=== PATIENT | male | born 2000 | race Caucasian/White ===

== ENCOUNTER 2024-09-11 17:17 | Inpatient (IN) | payer OTHER, SELFPAY ==
[2024-09-11 17:25] VITALS: BP 136/84; BP 143/75; PULSE 70; PULSE 73; RESP 16; TEMP 36.1; O2SAT 97; BMI 34.9
--- NOTE | 2024-09-11 17:35 | MHC.CARE ---
Addendum entered by Mari Carter LCSW 09/11/24 21:37: Lauren was updated on Pt's dispo: adult IPLOC. Original Note: [facility] counseling center clinican called CARE Team earlier reporting to expect Pt to come to [facility] ED. Spoke with Gregg ([phone]) who is the director of the counseling center who reports that Pt was walked over by two faculty members due to Pt expressing he was struggling with SI and not feeling in control of it. Pt reported recently searching on the internet how to overdose and has been considering jumping off of something that is tall. Recent SIB via cutting. SI attempt hx is not known. Pt reported that his brother a few months ago and it is suspected to be by completed suicide. 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 Pt is part of [employer] which is a group for those who were in the foster care system-- thus no contact information for family was able to be provided. Pt is prescribed medication, however is not refilled or administered by a provider located at [facility] (known: Celexa, Adderall). Dispo is to be reported to after-hours number to Lauren: [phone]
[2024-09-11 17:37] VITALS: RESP 16
--- NOTE | 2024-09-11 17:40 | PC.NURSE ---
Kristopher comes in today from [facility] on a section 12 after having some thoughts of suicide and increasing depression. he reports that he presented to his counselors office where he disclosed that he has been having increased thoughts of harming himself. He also admits to cutting his thighs recently. Pt is calm and cooperative, offering no complaints to this RN. Aware of plan of care for supervisor policy change clerks, medical clearance and then CARE team dagoberto
[2024-09-11 18:37] LABS: MANUAL DIFF FLAG NO
[2024-09-11 18:39] LABS: Appearance Urine Cloudy; Color Urine Yellow; Glucose Urine UA Negative (Negative); Leukocyte Esterase Urine Negative (Negative); Nitrite Urine Negative (Negative); PH 6.5 (5.0-9.0); Specific Gravity - Urine 1.025 (1.005-1.025); Urine Blood Negative (Negative); Urine Ketones Trace mg/dL (Negative); Urine Protein Negative (Neg-Trace)
[2024-09-11 18:48] LABS: Amphetamine Screen Urine POSITIVE (Not Detect); Barbiturates, Urine Not Detected (Not Detect); Benzodiazepines Screen Urine Not Detected (Not Detect); Buprenorphine Scr Not Detected (Not Detect); Cannabinoid Screen Urine POSITIVE (Not Detect); Cocaine Screen Urine Not Detected (Not Detect); Fentanyl, urine Not Detected (Not Detect); Methadone Screen, Urine Not Detected (Not Detect); Opiate Screen Urine Not Detected (Not Detect); Oxycodone Screen Urine Not Detected (Not Detect); Phencyclidine Screen Urine Not Detected (Not Detect)
[2024-09-11 18:51] LABS: Basophils Percent Auto 0.5 % (0-2); Eosinophils Absolute Auto 0.2 X10*3/uL (0.0-0.4); Eosinophils Percent Auto 3.1 % (0-4); Hematocrit 45.9 % (42.0-52.0); Hemoglobin 15.4 g/dl (14.0-18.0); Imm Gran Abs Auto 0.06 X10*3/uL (0.00-0.03); Imm Gran Pct Auto 0.8 % (0.0-0.4); Lymphocytes Absolute Auto 2.9 X10*3/uL (1.2-4.9); Lymphocytes Percent Auto 38.5 % (20-40); Mean Corpuscular HGB Conc 33.6 g/dl (31.0-36.0); Mean Corpuscular Hemoglobin 27.1 pg (27.0-33.0); Mean Corpuscular Volume 80.8 fL (80.0-98.0); Mean Platelet Volume 9.7 fL (9.4-12.4); Monocytes Absolute Auto 0.5 X10*3/uL (0.1-1.2); Neutrophils Absolute Auto 3.7 x10*3/uL (2.0-8.3); Neutrophils Percent Auto 50.1 % (45-73); Platelet Count 254 X10*3/uL (160-400); Red Blood Count 5.68 X10*6/uL (4.60-5.80); White Blood Count 7.5 X10*3/uL (4.8-10.8)
[2024-09-11 19:06] LABS: Alanine Aminotransferase 34 U/L (0-40); Albumin Level 4.2 g/dL (3.5-5.0); Anion Gap 13 (12-20); Aspartate Amino Transferase 26 U/L (5-37); Bilirubin Total 0.5 mg/dL (0.0-1.0); Blood Urea Nitrogen 12 mg/dL (9-16); Calcium 9.6 mg/dL (8.4-10.2); Carbon Dioxide 27 mmol/L (22-29); Chloride 107 mmol/L (96-108); Estimated Glomerular Filt Rate > 60; Ethanol < 10 mg/dL; Glucose Random 89 mg/dL (60-115); Potassium 3.6 mmol/L (3.3-5.1); Sodium 143 mmol/L (135-145); Total Protein 7.3 g/dL (6.5-8.0)
--- NOTE | 2024-09-11 19:10 | PC.NURSE ---
patient appears to remain at rest presently respirations are even and unlabored patient appears in no distress
[2024-09-11 19:15] LABS: Alkaline Phosphatase 103 U/L (39-117)
--- NOTE | 2024-09-11 20:44 | ED.PSYCH ---
HPI - Psych General Chief Complaint: Psychiatric Symptoms Stated Complaint: sect 12, si Time Seen by Provider: 09/11/24 19:42 Source: patient Mode of arrival: ambulatory History of Present Illness ED Provider: Mary Kemp PA-C HPI Narrative: 24-year-old male with a history of autism, bipolar, OCD, ADHD, anxiety and depression, presents from [facility], via a section 12, with SI. Patient does not have a specific plan for self-harm at this time. Patient states he has had increasing psychosocial stressors. Patient has prior suicide attempts including an attempt to hang himself. Denies use of illicit substances or alcohol. Related Data Allergies Allergy/AdvReac Type Severity Reaction Status Date / Time No Known Allergies Allergy Verified 09/11/24 17:28 Review of Systems Review of Systems: Yes all other systems are reviewed and are negative Constitutional: Constitutional: Denies fatigue and Denies fever(s) Cardiovascular: Cardiovascular: Denies chest pain and Denies dyspnea Respiratory: Respiratory: Denies cough and Denies dyspnea Gastrointestinal: Gastrointestinal: Denies abdominal pain, Denies nausea and Denies vomiting Endocrine: Endocrine: Denies fatigue [facility] Past Medical History Attestation statement: The following information was validated with the patient. Social History Social History Alcohol intake: current Alcohol intake frequency: holidays/special occasions only Smoked in Last 30 Days: No Use of substances other than those prescribed or required for medical reasons: Yes Substance Use Type: Marijuana Substance Use Frequency: Occasionally Advance Directives: No Advance Directives Information Provided: No Physical Exam Vital Signs: Vital Signs: Last Vital Signs Temp 97.0 F 09/11/24 17:25 Pulse 70 09/11/24 17:25 Resp 16 09/11/24 17:37 BP 143/75 H 09/11/24 23:01 Pulse Ox 97 09/11/24 17:25 O2 Del Method Room Air 09/11/24 17:25 BMI result Body Mass Index 34.9 Const: Other: Alert well-appearing Orientation/consciousness: patient oriented x3 Resp: Effort & Inspection: normal respiratory effort Cardio: Other: Normal peripheral perfusion Skin: Other: Warm dry no rash Neuro: General: patient oriented x3, gait normal, no focal motor deficits and CN's II-XI intact bilaterally Psych: Other: Cooperative Course Reevaluation(s) Reevaluation #1: I spoke with the care team, the patient has been researching ways to overdose. He is high risk, he has had prior attempts, he we will be a bed search. Medications Administered Discontinued Medications Generic Name Dose Route Start Last Admin Trade Name Wilbert PRN Reason Stop Dose Admin Clonidine HCl 0.2 mg 09/11/24 22:56 09/11/24 23:01 Clonidine Hcl 0.2 Mg Tablet PO 09/11/24 22:57 0.2 mg ONCE ONE Administration Protocol Hydroxyzine HCl 50 mg 09/11/24 22:56 09/11/24 23:00 Hydroxyzine Hcl 50 Mg Tablet PO 09/11/24 22:57 50 mg ONCE ONE Administration Medical Decision Making Medical Decision Making MDM Narrative: 24-year-old male with a history of autism, bipolar, OCD, ADHD, anxiety and depression, presents from [facility] student counseling center, via a section 12, with SI. Patient does not have a specific plan for self-harm at this time. Patient states he has had increasing psychosocial stressors. Patient has prior suicide attempts including an attempt to hang himself. Denies use of illicit substances or alcohol. Problem: Psychiatric illness History: Per patient I have considered the following differential diagnoses: SI, HI, decompensated psychiatric illness, drug/alcohol intoxication Plan: We will be screening basic labs, serum ethanol and drug screen. The patient will be referred to the care team. I have independently reviewed the following tests: Labs: No leukocytosis, not anemic, no electrolyte abnormalities noted, drug screen positive for cannabinoids and amphetamine, ethanol negative Lab Data 09/11/24 18:27 09/11/24 18:27 Labs: Lab Results 09/11/24 Range/Units 18:27 WBC 7.5 (4.8-10.8) X10*3/uL RBC 5.68 (4.60-5.80) X10*6/uL Hgb 15.4 (14.0-18.0) g/dl Hct 45.9 (42.0-52.0) % MCV 80.8 (80.0-98.0) fL MCH 27.1 (27.0-33.0) pg MCHC 33.6 (31.0-36.0) g/dl RDW 13.0 (11.0-16.0) % Plt Count 254 (160-400) X10*3/uL MPV 9.7 (9.4-12.4) fL Immature Gran % (Auto) 0.8 H (0.0-0.4) % Neut % (Auto) 50.1 (45-73) % Lymph % (Auto) 38.5 (20-40) % [place] % (Auto) 7.0 (2-11) % Eos % (Auto) 3.1 (0-4) % Baso % (Auto) 0.5 (0-2) % Lymph # (Auto) 2.9 (1.2-4.9) X10*3/uL [place] # (Auto) 0.5 (0.1-1.2) X10*3/uL Eos # (Auto) 0.2 (0.0-0.4) X10*3/uL Baso # (Auto) 0.0 (0.0-0.2) X10*3/uL Abs Immat Gran (auto) 0.06 H (0.00-0.03) X10*3/uL Absolute Neuts (auto) 3.7 (2.0-8.3) x10*3/uL Absolute Nucleated RBC 0.000 (0.0-0.012) X10*3/uL Nucleated RBC % (auto) 0.0 (0.0-0.2) /100WBC Sodium 143 (135-145) mmol/L Potassium 3.6 (3.3-5.1) mmol/L Chloride 107 (96-108) mmol/L Carbon Dioxide 27 (22-29) mmol/L Anion Gap 13 (12-20) BUN 12 (9-16) mg/dL Creatinine 1.03 (0.5-1.4) mg/dL Estim Creat Clear Calc 144.0 Estimated GFR > 60 Random Glucose 89 (60-115) mg/dL Calcium 9.6 (8.4-10.2) mg/dL Total Bilirubin 0.5 (0.0-1.0) mg/dL AST 26 (5-37) U/L ALT 34 (0-40) U/L Alkaline Phosphatase 103 (39-117) U/L Total Protein 7.3 (6.5-8.0) g/dL Albumin 4.2 (3.5-5.0) g/dL Urine Color Yellow Urine Appearance Cloudy Urine pH 6.5 (5.0-9.0) Ur Specific [place] 1.025 (1.005-1.025) Urine Protein Negative (Neg-Trace) mg/dL Urine Glucose (UA) Negative (Negative) mg/dL Urine Ketones Trace (Negative) mg/dL Urine Blood Negative (Negative) Urine Nitrite Negative (Negative) Ur Leukocyte Esterase Negative (Negative) Urine Opiates Screen Not Detected (Not Detect) Ur Buprenorphine Scrn Not Detected (Not Detect) ng/mL Ur Oxycodone Screen Not Detected (Not Detect) ng/mL Urine Methadone Screen Not Detected (Not Detect) ng/mL Urine Fentanyl Screen Not Detected (Not Detect) Ur Barbiturates Screen Not Detected (Not Detect) Ur Phencyclidine Scrn Not Detected (Not Detect) Ur Amphetamines Screen POSITIVE H (Not Detect) U Benzodiazepines Scrn Not Detected (Not Detect) Urine Cocaine Screen Not Detected (Not Detect) U Marijuana (THC) Screen POSITIVE H (Not Detect) Ethyl Alcohol < 10 mg/dL Discharge Plan Discharge Clinical Impression: Suicidal ideation Patient Disposition: Still a Patient Interventions: [place]-Suicide Risk Severity Scale Last Done: 09/11/24 17:37 Print Language: Mozambican
[2024-09-11] MEDS: hydrOXYzine HCL 50 MG TABLET PO (23:00)
[2024-09-11 23:01] VITALS: BP 143/75
[2024-09-11] MEDS: cloNIDine HCL 0.2 MG TABLET PO (23:01)
[2024-09-12 11:02] VITALS: BP 112/54; PULSE 60; RESP 14; TEMP 36.8; O2SAT 98
--- NOTE | 2024-09-12 12:52 | PHA.MEDREC ---
Pharmacy Consult ? Medication Reconciliation RN has completed the medication reconciliation. Contacted [facility] pharmacy and patient has been filling Citalopram and vyvanse consistently over the past year. Last fill for vyvanse 07/20/24 x 30 days and last fill of citalopram 20 mg was on 07/20 for a 30 day supply.
--- NOTE | 2024-09-12 12:59 | P.HPPS_ITS ---
HPI Date of Service: 09/12/24 Chief Complaint: SI Sources of Information: patient interviewed, chart reviewed and crisis/core team assessment reviewed HPI Subjective Notes: Conditional Voluntary Medical Problems Affecting Mental Status: No Narrative: As per CARES documentation 09/11/24: [facility] counseling center clinican called CARE Team earlier reporting to expect Pt to come to [facility] ED. Spoke with Gregg ([phone]) who is the director of the counseling center who reports that Pt was walked over by two faculty members due to Pt expressing he was struggling with SI and not feeling in control of it. Pt reported recently searching on the internet how to overdose and has been considering jumping off of something that is tall. Recent SIB via cutting. SI attempt hx is not known. Pt reported that his brother a few months ago and it is suspected to be by completed suicide. 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 Pt is part of [employer] which is a group for those who were in the foster care system-- thus no contact information for family was able to be provided. Pt is prescribed medication, however is not refilled or administered by a provider located at [facility] (known: Celexa, Adderall) Today: Noted CARES eval also included: [facility] concerned ref depression and SI and self harm. Inconsistent ref meds. Foster care. Younger brother July 2024 and lost hope since then. Patient very pleasant and engaged during admission. Signed voluntary paperwork. Understood three-day process . Reports wanting help with depression, hopelessness and suicidal thoughts. Does have clear MDD criteria with depressed mood, lack of enjoyment and motivation, no energy, excessive sleeping, hopelessness with suicidal thoughts. Also guilt which is also in the context of his 21-year-old brother (Ervin) dying from an overdose in July 2024. it is unclear if this overdose was accidental or intentional. Patient has guilt because he spoke with his brother that day, aware that he was stressed around access to drugs, not having money and feeling depressed. Reports brother did have a history of suicide attempts. Reports he is very close to his brother and he was the main driver/guide in patient wanting to do well in school and describes it as a significant loss. Discussed loss and grief support. Since then reports suicidal thoughts have increased in intensity has started to have plans such as jumping off a bridge that is close to where he is or overdosing on his medications. Had researched this. Reports spoke with his academic mentor to tell them he was not doing well and needed help. That led to [facility] involvement and then crisis / Hospital involvement. Otherwise does endorse chronic SI but no plans or intent x years until last 2 months Other stressors include financial institution vice president being paused with government change. Also uncertainty around his future career goals and if that type of work or groups he might want to work with will be supported. Current providers through [facility] x approx 2 years. Currently on Vyvanse 40 mg and Celexa 20 mg, both doses consistent since the summer. Previously on Concerta, Ritalin, gabapentin, hydroxyzine, clonidine and Zoloft. Zoloft was around age 20 and describes clear manic symptoms resulting from same of decreased sleep, grandiosity, high energy, impulsivity and risk-taking (promiscuity, spending and disappearing for long periods). 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 Living on campus. 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 Reports gaining employment and excited about a job opportunity on 09/28. 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 Considering grad school for master's in DIANNE therapy. Single. No recent breakups. No legal issues. No children Marijuana and nicotine use. Complex family history. Foster care and raised with 3 siblings (there is a fourth but no contact). Siblings aged 18 (Bart), 21 (Ervin by Jul 2024) and older 30yo brother. He, Ervin and Bart were all with same foster family but at different times i.e. never with foster family with siblings. Patient was at what used to be the [employer] program from 13yo-17yo, then foster family until 2019 when he aged out and living at college. Past Psychiatric History: First admission. Has been on medications since childhood and reports diagnoses bipolar disorder, autism spectrum disorder ( the social and sensory parts especially ) and ADHD. Currently on Vyvanse 40 mg and Celexa 20 mg, both doses consistent since the summer. Previously on Concerta, Ritalin, gabapentin, hydroxyzine, clonidine and Zoloft. Zoloft was around age 20 and describes clear manic symptoms resulting from same of decreased sleep, grandiosity, high energy, impulsivity and risk-taking (promiscuity, spending and disappearing for long periods). Unsure of he saw and heard things during early teenage years. One SA in 2021- belt broke while trying to hang self. Did not inform anybody. Did write suicide notes. Otherwise does endorse chronic SI but no plans or intent x years. Current providers through [facility] x approx 2 years. Medical Evaluation Reviewed: Yes [facility] Social History: Senior at [employer], with major in psychology and economics. Living on campus. Does work study at the [employer] on campus. Reports gaining employment and excited about a job opportunity on 09/28. 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 Considering grad school for master's in DIANNE therapy. Single. No recent breakups. No legal issues. No children Marijuana and nicotine use. Complex family history. Foster care and raised with 3 siblings (there is a fourth but no contact). Siblings aged 18 (Bart), 21 (Ervin by Jul 2024) and older 30yo brother. He, Ervin and Bart were all with same foster family but at different times i.e. never with foster family with siblings. Patient was at what used to be the [employer] program from 11yo-17yo, then foster family until 2019 when he aged out and living at college. Substance History: MJ use Trauma History: Foster care system. Brother by Jul 2024 Diagnostics Vital Signs (24Hr): Vital Signs - 24 hr 09/11/24 17:25 09/11/24 17:37 09/11/24 23:01 Temperature 97.0 F Pulse Rate 70 Respiratory Rate 16 16 Blood Pressure 143/75 H 143/75 H Pulse Oximetry 97 Oxygen Delivery Method Room Air 09/12/24 11:02 Temperature 98.2 F Pulse Rate 60 Respiratory Rate 14 Blood Pressure 112/54 L Pulse Oximetry 98 Oxygen Delivery Method Room Air BMI result Body Mass Index 34.9 Labs 09/11/24 18:27 09/11/24 18:27 Labs: Laboratory Results - last 48 hr 09/11/24 18:27 WBC 7.5 RBC 5.68 Hgb 15.4 Hct 45.9 MCV 80.8 MCH 27.1 MCHC 33.6 RDW 13.0 Plt Count 254 MPV 9.7 Immature Gran % (Auto) 0.8 H Neut % (Auto) 50.1 Lymph % (Auto) 38.5 [place] % (Auto) 7.0 Eos % (Auto) 3.1 Baso % (Auto) 0.5 Lymph # (Auto) 2.9 [place] # (Auto) 0.5 Eos # (Auto) 0.2 Baso # (Auto) 0.0 Abs Immat Gran (auto) 0.06 H Absolute Neuts (auto) 3.7 Absolute Nucleated RBC 0.000 Nucleated RBC % (auto) 0.0 Sodium 143 Potassium 3.6 Chloride 107 Carbon Dioxide 27 Anion Gap 13 BUN 12 Creatinine 1.03 Estim Creat Clear Calc 144.0 Estimated GFR > 60 Random Glucose 89 Calcium 9.6 Total Bilirubin 0.5 AST 26 ALT 34 Alkaline Phosphatase 103 Total Protein 7.3 Albumin 4.2 Urine Color Yellow Urine Appearance Cloudy Urine pH 6.5 Ur Specific [place] 1.025 Urine Protein Negative Urine Glucose (UA) Negative Urine Ketones Trace Urine Blood Negative Urine Nitrite Negative Ur Leukocyte Esterase Negative Urine Opiates Screen Not Detected Ur Buprenorphine Scrn Not Detected Ur Oxycodone Screen Not Detected Urine Methadone Screen Not Detected Urine Fentanyl Screen Not Detected Ur Barbiturates Screen Not Detected Ur Phencyclidine Scrn Not Detected Ur Amphetamines Screen POSITIVE H U Benzodiazepines Scrn Not Detected Urine Cocaine Screen Not Detected U Marijuana (THC) Screen POSITIVE H Ethyl Alcohol < 10 Meds/Allergies Meds Home Medications ?Medication ?Instructions ?Recorded ?Confirmed ?Type citalopram 20 mg tablet (Celexa) 20 mg PO DAILY 09/12/24 09/12/24 History lisdexamfetamine 40 mg capsule 40 mg PO QAM 09/12/24 09/12/24 History (Vyvanse) Allergies Allergies Allergy/AdvReac Type Severity Reaction Status Date / Time No Known Allergies Allergy Verified 09/11/24 17:28 Mental Status Exam Mental Status Exam Narrative: pleasant. Engaged. Hospital clothing. Fair hygiene. Organized and articulate. Thoughtful. He is depressed. Does endorse suicidal thoughts. Plans of jumping off a bridge, but also wants help. Endorses hopelessness. No HI. No agitation or psychosis. Insight and judgment is fair Assessment & Plan Assessment & Plan (1) PTSD (post-traumatic stress disorder): Status: Acute Code(s): F43.10 - Post-traumatic stress disorder, unspecified (2) ADHD: Status: Acute Code(s): F90.9 - Attention-deficit hyperactivity disorder, unspecified type (3) Bipolar depression: Status: Acute Code(s): F31.9 - Bipolar disorder, unspecified Plan Presents with clear major depressive features (BP disorder). Also has history of ADHD and PTSD. Significant factors include loss of his brother whom he was very close with in July 2024, uncertainty regarding finances for Education and future career opportunities with change in presidential administrations. Inpatient level of care appropriate- severe MDD, worsening suicidal thoughts with planning and danger to self. CV signed. Regarding medication options, discussed and in agreement to starting Wellbutrin for mood symptoms, may also optimize ADHD management and also minimize chances of switching to nilo/hypomania. Maintain celexa 20mg. Start wellbutrin 150mg. If does well on that, might taper off celexa. Patient educated on: medication risk/benefits Informed Consent: understands Reason for continued inpatient stay Substantial Risk for: harm to self Statement Statement: I have reviewed the history and physical and performed a pertinent examination on my patient. No changes have occurred unless specified. If the History and Physical was not performed prior to admission, the Hospitalist's service will be consulted for completing the admission physical. Time Spent With Patient Time: Total time managing care of this patient today ____ minutes.
[2024-09-12 13:48] VITALS: BP 129/83; PULSE 60; RESP 18; TEMP 36.8; O2SAT 98
[2024-09-12 13:49] VITALS: BMI 34.9
[2024-09-12] MEDS: buPROPion HCl XL 150 MG TAB.ER.24H PO (14:22)
--- NOTE | 2024-09-12 14:45 | PC.ADMIT ---
Kristopher is a 24 year old male who admitted to M5 from the [facility] at 1235 with dz of SI. Once on unit he signed a CV with Dr Elizabeth, was compliant with admission process, and oriented to the unit. 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 He was brought in by EMS after reporting SI to the counseling center at school. He has a dx of autism, depression, anxiety, OCD, Bipolar disorder II, and ADHD and this is his first psychiatric inpatient admission. Per CARE team assessment he was placed into DCF custody and raised in foster care. He has a hx of multiple traumas and his younger brother in Jul 2024 and is still grieving. He has been increasingly hopeless and started to research ways to complete suicide and in 2021 reports hx of SA by hanging but the rope broke. He takes Celexa and Vyvanse inconsistently and has been started on Wellbutrin here on M5. His tox screen was positive for amphetamines and marijuana. He vapes nicotine occasionally, drinks alcohol once a month, and uses marijuana daily. He declines NRT and is accepting of Flu vaccine. Skin and safety check completed and noted several superficial cuts on left thigh that are ANGIE otherwise unremarkable. He states is is able to come to staff if feeling unsafe to self or others and presently denies SI/HI/AVH. He is on q 15 min checks for safety. Kristopher attended psych group this afternoon and reports he really enjoyed it. Admission complete.
[2024-09-12] MEDS: Flu Vacc TS2024-25(6mos up)/PF 0.5 ML SYRINGE IM (15:51)
[2024-09-12 21:00] VITALS: BP 129/65; PULSE 75; RESP 16; TEMP 37.2; O2SAT 97
[2024-09-12] MEDS: traZODone HCL 50 MG TABLET PO (21:35)
[2024-09-12] MEDS: hydrOXYzine HCL 25 MG TABLET PO (21:35)
[2024-09-13 08:00] VITALS: BP 162/70; PULSE 68; RESP 20; TEMP 36.6; O2SAT 98
[2024-09-13] MEDS: buPROPion HCl XL 150 MG TAB.ER.24H PO (08:15)
[2024-09-13] MEDS: Escitalopram Oxalate 10 MG TABLET PO (08:15)
--- NOTE | 2024-09-13 09:44 | P.PNPSI_ITS ---
Subjective Subjective Date of Service: 09/13/24 Reason For Visit: SI Subjective Notes: Lee Warning and 3 Day Interim History: Met with patient. Discussed with Nursing. Is finding the inpatient unit environment difficult as it brings up memories and experiences of foster care and treatment programs in the past, despite this being 1st inpatient psychiatry admission. Had a visit from his college mentor, which was very positive. Reports trying to see the positive side of his admission, which includes him reaching out for help, getting help, now having therapy services, which is a huge factor, medication adjustments and now sees some light and is feeling hopeful, which is something he was not experiencing before . Adamantly denies suicidal thoughts. No psychosis. No med issues. Submitted 3 day notice. Medication Compliance: Yes Side effects from medications: No Attending Groups: Yes Review of Systems Acute medical concerns: No Review of Systems Review of Systems Yes all other systems are reviewed and are negative Mental Status Exam Mental Status Exam Narrative: pleasant. Engaged. Hospital clothing. Fair hygiene. Organized and articulate. Thoughtful. Is brighter in affect today. Denies suicidal thoughts. Is hopeful. Feeling supported. No HI. No agitation or psychosis. Insight and judgment is fair Diagnostics Vital Signs (24Hr): Vital Signs - 24 hr 09/12/24 11:02 09/12/24 13:48 09/12/24 21:00 Temperature 98.2 F 98.2 F 98.9 F Pulse Rate 60 60 75 Respiratory Rate 14 18 16 Blood Pressure 112/54 L 129/83 129/65 Pulse Oximetry 98 98 97 Oxygen Delivery Method Room Air Room Air Room Air 09/13/24 08:00 Temperature 97.8 F Pulse Rate 68 Respiratory Rate 20 Blood Pressure 162/70 H Pulse Oximetry 98 Oxygen Delivery Method Room Air BMI result Body Mass Index 34.9 Labs 09/11/24 18:27 09/11/24 18:27 Labs: Laboratory Results - last 48 hr 09/11/24 18:27 WBC 7.5 RBC 5.68 Hgb 15.4 Hct 45.9 MCV 80.8 MCH 27.1 MCHC 33.6 RDW 13.0 Plt Count 254 MPV 9.7 Immature Gran % (Auto) 0.8 H Neut % (Auto) 50.1 Lymph % (Auto) 38.5 [place] % (Auto) 7.0 Eos % (Auto) 3.1 Baso % (Auto) 0.5 Lymph # (Auto) 2.9 [place] # (Auto) 0.5 Eos # (Auto) 0.2 Baso # (Auto) 0.0 Abs Immat Gran (auto) 0.06 H Absolute Neuts (auto) 3.7 Absolute Nucleated RBC 0.000 Nucleated RBC % (auto) 0.0 Sodium 143 Potassium 3.6 Chloride 107 Carbon Dioxide 27 Anion Gap 13 BUN 12 Creatinine 1.03 Estim Creat Clear Calc 144.0 Estimated GFR > 60 Random Glucose 89 Calcium 9.6 Total Bilirubin 0.5 AST 26 ALT 34 Alkaline Phosphatase 103 Total Protein 7.3 Albumin 4.2 Urine Color Yellow Urine Appearance Cloudy Urine pH 6.5 Ur Specific [place] 1.025 Urine Protein Negative Urine Glucose (UA) Negative Urine Ketones Trace Urine Blood Negative Urine Nitrite Negative Ur Leukocyte Esterase Negative Urine Opiates Screen Not Detected Ur Buprenorphine Scrn Not Detected Ur Oxycodone Screen Not Detected Urine Methadone Screen Not Detected Urine Fentanyl Screen Not Detected Ur Barbiturates Screen Not Detected Ur Phencyclidine Scrn Not Detected Ur Amphetamines Screen POSITIVE H U Benzodiazepines Scrn Not Detected Urine Cocaine Screen Not Detected U Marijuana (THC) Screen POSITIVE H Ethyl Alcohol < 10 Medications Medications Current Medications Acetaminophen (Acetaminophen 325 Mg Tablet) 650 mg PO Q6H PRN PRN Reason: Headache/Pain Mild Scale (1-3) Al Hydroxide/Mg Hydroxide (Magnesium Hydrox/Alum Hydrox 30 Ml Oral.Susp) 30 ml PO Q6H PRN PRN Reason: Heartburn/Nausea Bupropion HCl (Bupropion Hcl Xl 150 Mg Tab.Er.24h) 150 mg PO DAILY LEANDRO Last Admin: 09/13/24 08:15 Dose: 150 mg Escitalopram Oxalate (Escitalopram Oxalate 10 Mg Tablet) 10 mg PO DAILY LEANDRO Last Admin: 09/13/24 08:15 Dose: 10 mg Hydroxyzine HCl (Hydroxyzine Hcl 25 Mg Tablet) 25 mg PO Q6H PRN PRN Reason: Anxiety Last Admin: 09/12/24 21:35 Dose: 25 mg Magnesium Hydroxide (Milk Of Magnesia 30 Ml Oral.Susp) 30 ml PO DAILY PRN PRN Reason: Constipation Non-Formulary Medication (Lisdexamfetamine [Vyvanse]) 40 mg PO QAM [facility] Trazodone HCl (Trazodone Hcl 50 Mg Tablet) 50 mg PO BEDTIME MRX1 PRN PRN Reason: Insomnia Last Admin: 09/12/24 21:35 Dose: 50 mg Allergies Allergies Allergy/AdvReac Type Severity Reaction Status Date / Time No Known Allergies Allergy Verified 09/11/24 17:28 Assessment & Plan Assessment & Plan (1) PTSD (post-traumatic stress disorder): Status: Acute Code(s): F43.10 - Post-traumatic stress disorder, unspecified (2) ADHD: Status: Acute Code(s): F90.9 - Attention-deficit hyperactivity disorder, unspecified type (3) Bipolar depression: Status: Acute Code(s): F31.9 - Bipolar disorder, unspecified Plan Presents with clear major depressive features (BP disorder). Also has history of ADHD and PTSD. Significant factors include loss of his brother whom he was very close with in July 2024, uncertainty regarding finances for Education and future career opportunities with change in presidential administrations. Inpatient level of care appropriate- severe MDD, worsening suicidal thoughts with planning and danger to self. CV signed. Regarding medication options, discussed and in agreement to starting Wellbutrin for mood symptoms, may also optimize ADHD management and also minimize chances of switching to nilo/hypomania. Maintain celexa 20mg. Start wellbutrin 150mg. If does well on that, might taper off celexa. 09/13/24: no changes. 3 day notice submitted Reason for continued inpatient stay Substantial Risk for: harm to self Time Spent With Patient Time: Total time managing care of this patient today ____ minutes.
[2024-09-13 20:00] VITALS: BP 144/77; PULSE 91; RESP 16; TEMP 36.9; O2SAT 99
[2024-09-13] MEDS: traZODone HCL 50 MG TABLET PO (21:03)
[2024-09-13] MEDS: hydrOXYzine HCL 25 MG TABLET PO (21:05)
--- NOTE | 2024-09-14 04:09 | PC.NURSE ---
Patient signed a 3 day notice 09/13/24 that will be up 09/16/24. , SW and UR notified.
[2024-09-14 08:00] VITALS: BP 124/60; PULSE 80; RESP 16; TEMP 36.9; O2SAT 98
[2024-09-14] MEDS: Escitalopram Oxalate 10 MG TABLET PO (08:39)
[2024-09-14] MEDS: buPROPion HCl XL 150 MG TAB.ER.24H PO (08:39)
[2024-09-14] MEDS: AMPHETAMINE PO (10:36)
[2024-09-14] MEDS: DEXTROAMPHETAMI PO (10:36)
[2024-09-14 11:16] LABS: Influenza A PCR POSITIVE (Negative); Influenza B PCR NEGATIVE (Negative); Resp Syncy Virus RNA Qual PCR NEGATIVE (Negative); SARS COV2 PCR INHOUSE NEGATIVE (Negative)
--- NOTE | 2024-09-14 15:17 | HO.PSYCHPN ---
Subjective Subjective Date of Service: 09/14/24 Reason For Visit: SI Subjective Notes: Conditional Voluntary Healthcare Proxy: No Guardianship: No Medical Problems Affecting Mental Status: No Interim History: +Flu screen. Planning for discharge 09/16. Looking for a new psychiatrist and has interest in PHP. Review of medications which he agrees with his regime, is tolerating the regime plans to continue upon discharge. Denies SI,HI,AH, VH Medication Compliance: Yes Side effects from medications: No Attending Groups: Intermittent Review of Systems Acute medical concerns: No Review of Systems Review of Systems URI sx Mental Status Exam Mental Status Exam Patient Appearance: Fatigued and Appropriate Patient Orientation: Person, Place, Time and Situation Level of Consciousness: Alert Patient Behavior: Appropriate, Talkative, Cooperative and Good Eye Contact Mood Description: Anxious and Apprehensive Affect Description: Anxious and Apprehensive Patient Cognition Impaired: No Ability to Follow Directions: Good Speech Pattern: Spontaneous Speech Memory Description: Intact Hallucinations: None Delusions: Not Present Thought Process: Intact and Goal Oriented Thought Content: positive for Goal Oriented and positive for Suicidal Ideation (denies) Judgement: Good Diagnostics Vital Signs (24Hr): Vital Signs - 24 hr 09/13/24 20:00 09/14/24 08:00 Temperature 98.5 F 98.4 F Pulse Rate 91 80 Respiratory Rate 16 16 Blood Pressure 144/77 H 124/60 Pulse Oximetry 99 98 Oxygen Delivery Method Room Air Room Air BMI result Body Mass Index 34.9 Labs 09/11/24 18:27 09/11/24 18:27 Labs: Laboratory Results - last 48 hr 09/14/24 10:10 Influenza Type A (PCR) POSITIVE A Influenza Type B (PCR) NEGATIVE RSV RNA Qual (PCR) NEGATIVE SARS-CoV-2 RNA (RT-PCR) NEGATIVE Medications Medications Current Medications Acetaminophen (Acetaminophen 325 Mg Tablet) 650 mg PO Q6H PRN PRN Reason: Headache/Pain Mild Scale (1-3) Al Hydroxide/Mg Hydroxide (Magnesium Hydrox/Alum Hydrox 30 Ml Oral.Susp) 30 ml PO Q6H PRN PRN Reason: Heartburn/Nausea Amphetamine/Dextroamphetamine 10 mg/ Amphetamine/Dextroamphetamine 5 mg 15 mg PO DAILY LEANDRO Last Admin: 09/14/24 10:36 Dose: 15 mg Bupropion HCl (Bupropion Hcl Xl 150 Mg Tab.Er.24h) 150 mg PO DAILY LEANDRO Last Admin: 09/14/24 08:39 Dose: 150 mg Escitalopram Oxalate (Escitalopram Oxalate 10 Mg Tablet) 10 mg PO DAILY LEANDRO Last Admin: 09/14/24 08:39 Dose: 10 mg Hydroxyzine HCl (Hydroxyzine Hcl 25 Mg Tablet) 25 mg PO Q6H PRN PRN Reason: Anxiety Last Admin: 09/13/24 21:05 Dose: 25 mg Magnesium Hydroxide (Milk Of Magnesia 30 Ml Oral.Susp) 30 ml PO DAILY PRN PRN Reason: Constipation Trazodone HCl (Trazodone Hcl 50 Mg Tablet) 50 mg PO BEDTIME MRX1 PRN PRN Reason: Insomnia Last Admin: 09/13/24 21:03 Dose: 50 mg Allergies Allergies Allergy/AdvReac Type Severity Reaction Status Date / Time No Known Allergies Allergy Verified 09/11/24 17:28 Assessment & Plan Assessment & Plan (1) PTSD (post-traumatic stress disorder): Status: Acute Code(s): F43.10 - Post-traumatic stress disorder, unspecified (2) ADHD: Status: Acute Code(s): F90.9 - Attention-deficit hyperactivity disorder, unspecified type (3) Bipolar depression: Status: Acute Code(s): F31.9 - Bipolar disorder, unspecified Plan Presents with clear major depressive features (BP disorder). Also has history of ADHD and PTSD. Significant factors include loss of his brother whom he was very close with in July 2024, uncertainty regarding finances for Education and future career opportunities with change in presidential administrations. Inpatient level of care appropriate- severe MDD, worsening suicidal thoughts with planning and danger to self. CV signed. Regarding medication options, discussed and in agreement to starting Wellbutrin for mood symptoms, may also optimize ADHD management and also minimize chances of switching to nilo/hypomania. Maintain celexa 20mg. Start wellbutrin 150mg. If does well on that, might taper off celexa. 09/13/24: no changes. 3 day notice submitted 09/14/24: continue tx. DC 09/16/24. Patient educated on: therapeutic strategies Informed Consent: understands Reason for continued inpatient stay Substantial Risk for: rapid decompensation Time Spent With Patient Time: Total time managing care of this patient today ____ minutes.
[2024-09-14 20:00] VITALS: BP 147/54; PULSE 90; TEMP 36; O2SAT 96
[2024-09-14] MEDS: Acetaminophen 325 MG TABLET 650 MG PO (21:45)
[2024-09-14] MEDS: traZODone HCL 50 MG TABLET PO (21:47)
[2024-09-15] MEDS: traZODone HCL 50 MG TABLET PO (03:33)
[2024-09-15 08:00] VITALS: BP 129/63; PULSE 102; RESP 18; TEMP 37.8; O2SAT 95
[2024-09-15] MEDS: buPROPion HCl XL 150 MG TAB.ER.24H PO (08:51)
[2024-09-15] MEDS: DEXTROAMPHETAMI PO (08:51)
[2024-09-15] MEDS: Escitalopram Oxalate 10 MG TABLET PO (08:51)
[2024-09-15] MEDS: AMPHETAMINE PO (08:51)
[2024-09-15] MEDS: Acetaminophen 325 MG TABLET 650 MG PO ×2 (08:57→20:16)
--- NOTE | 2024-09-15 10:27 | HO.PSYCHPN ---
Subjective Subjective Date of Service: 09/15/24 Reason For Visit: SI Subjective Notes: Conditional Voluntary and 3 Day Healthcare Proxy: No Guardianship: No Medical Problems Affecting Mental Status: No Interim History: Pt with flu sx he reports to be manageable. Tamiflu ordered. Discussed feeling triggered at times in the milieu Resting, attending some activities Denies SI,HI,AH,VH No sx of acute nilo or psychosis Medication Compliance: Yes Side effects from medications: No Attending Groups: Intermittent Review of Systems Acute medical concerns: No Medical Review of Systems: unchanged Review of Systems Review of Systems +flu Mental Status Exam Mental Status Exam Patient Appearance: Fatigued and Appropriate Patient Orientation: Person, Place, Time and Situation Level of Consciousness: Alert Patient Behavior: Appropriate, Talkative, Cooperative and Good Eye Contact Mood Description: Anxious and Apprehensive Affect Description: Anxious and Apprehensive Patient Cognition Impaired: No Ability to Follow Directions: Good Speech Pattern: Spontaneous Speech Memory Description: Intact Hallucinations: None Delusions: Not Present Thought Process: Intact and Goal Oriented Thought Content: positive for Goal Oriented and positive for Suicidal Ideation (denies) Judgement: Good Diagnostics Vital Signs (24Hr): Vital Signs - 24 hr 09/14/24 20:00 09/15/24 08:00 Temperature 96.8 F 100.1 F Pulse Rate 90 102 H Respiratory Rate 18 Blood Pressure 147/54 H 129/63 Pulse Oximetry 96 95 Oxygen Delivery Method Room Air Room Air BMI result Body Mass Index 34.9 Labs 09/11/24 18:27 09/11/24 18:27 Labs: Laboratory Results - last 48 hr 09/14/24 10:10 Influenza Type A (PCR) POSITIVE A Influenza Type B (PCR) NEGATIVE RSV RNA Qual (PCR) NEGATIVE SARS-CoV-2 RNA (RT-PCR) NEGATIVE Medications Medications Current Medications Acetaminophen (Acetaminophen 325 Mg Tablet) 650 mg PO Q6H PRN PRN Reason: Headache/Pain Mild Scale (1-3) Last Admin: 09/15/24 08:57 Dose: 650 mg Al Hydroxide/Mg Hydroxide (Magnesium Hydrox/Alum Hydrox 30 Ml Oral.Susp) 30 ml PO Q6H PRN PRN Reason: Heartburn/Nausea Amphetamine/Dextroamphetamine 10 mg/ Amphetamine/Dextroamphetamine 5 mg 15 mg PO DAILY LEANDRO Last Admin: 09/15/24 08:51 Dose: 15 mg Bupropion HCl (Bupropion Hcl Xl 150 Mg Tab.Er.24h) 150 mg PO DAILY LEANDRO Last Admin: 09/15/24 08:51 Dose: 150 mg Escitalopram Oxalate (Escitalopram Oxalate 10 Mg Tablet) 10 mg PO DAILY LEANDRO Last Admin: 09/15/24 08:51 Dose: 10 mg Hydroxyzine HCl (Hydroxyzine Hcl 25 Mg Tablet) 25 mg PO Q6H PRN PRN Reason: Anxiety Last Admin: 09/13/24 21:05 Dose: 25 mg Magnesium Hydroxide (Milk Of Magnesia 30 Ml Oral.Susp) 30 ml PO DAILY PRN PRN Reason: Constipation Trazodone HCl (Trazodone Hcl 50 Mg Tablet) 50 mg PO BEDTIME MRX1 PRN PRN Reason: Insomnia Last Admin: 09/15/24 03:33 Dose: 50 mg Allergies Allergies Allergy/AdvReac Type Severity Reaction Status Date / Time No Known Allergies Allergy Verified 09/11/24 17:28 Assessment & Plan Assessment & Plan (1) PTSD (post-traumatic stress disorder): Status: Acute Code(s): F43.10 - Post-traumatic stress disorder, unspecified (2) ADHD: Status: Acute Code(s): F90.9 - Attention-deficit hyperactivity disorder, unspecified type (3) Bipolar depression: Status: Acute Code(s): F31.9 - Bipolar disorder, unspecified Plan Presents with clear major depressive features (BP disorder). Also has history of ADHD and PTSD. Significant factors include loss of his brother whom he was very close with in July 2024, uncertainty regarding finances for Education and future career opportunities with change in presidential administrations. Inpatient level of care appropriate- severe MDD, worsening suicidal thoughts with planning and danger to self. CV signed. Regarding medication options, discussed and in agreement to starting Wellbutrin for mood symptoms, may also optimize ADHD management and also minimize chances of switching to nilo/hypomania. Maintain celexa 20mg. Start wellbutrin 150mg. If does well on that, might taper off celexa. 09/13/24: no changes. 3 day notice submitted 09/15/24: Discharge 09/16 Tamiflu ordered, pt agrees Reason for continued inpatient stay Substantial Risk for: rapid decompensation Time Spent With Patient Time: Total time managing care of this patient today ____ minutes.
[2024-09-15] MEDS: Ibuprofen 800 MG TABLET PO (14:06)
[2024-09-15] MEDS: Oseltamivir Phosphate 30 MG CAPSULE PO (14:16)
[2024-09-15 19:49] VITALS: BP 132/68; PULSE 96; RESP 16; TEMP 37.8; O2SAT 96
[2024-09-16] MEDS: traZODone HCL 50 MG TABLET PO (00:17)
--- NOTE | 2024-09-16 05:14 | P.DS_ITS ---
DS: Providers Provider Date of admission: 09/12/24 11:52 Primary care physician: Unknown Physician DS: Diagnosis Discharge Diagnosis (1) PTSD (post-traumatic stress disorder): Status: Acute (2) ADHD: Status: Acute (3) Bipolar depression: Status: Acute DS: Medications Discharge Medications Home Medications: Previous Rx's ?Medication ?Instructions ?Recorded bupropion HCl 150 mg 24 hr tablet, 150 mg PO DAILY #30 tabs 09/16/24 extended release citalopram 20 mg tablet (Celexa) 20 mg PO DAILY #30 tabs 09/16/24 lisdexamfetamine 40 mg capsule 40 mg PO QAM #30 caps 09/16/24 (Vyvanse) oseltamivir 30 mg capsule 30 mg PO Q12H #8 caps 09/16/24 Data Data Completed and Pending Completed studies during hospitalization [Text1]: 09/11/24 09/14/24 18:27 10:10 WBC 7.5 RBC 5.68 Hgb 15.4 Hct 45.9 MCV 80.8 MCH 27.1 MCHC 33.6 RDW 13.0 Plt Count 254 MPV 9.7 Immature Gran % (Auto) 0.8 H Neut % (Auto) 50.1 Lymph % (Auto) 38.5 [place] % (Auto) 7.0 Eos % (Auto) 3.1 Baso % (Auto) 0.5 Lymph # (Auto) 2.9 [place] # (Auto) 0.5 Eos # (Auto) 0.2 Baso # (Auto) 0.0 Abs Immat Gran (auto) 0.06 H Absolute Neuts (auto) 3.7 Absolute Nucleated RBC 0.000 Nucleated RBC % (auto) 0.0 Sodium 143 Potassium 3.6 Chloride 107 Carbon Dioxide 27 Anion Gap 13 BUN 12 Creatinine 1.03 Estim Creat Clear Calc 144.0 Estimated GFR > 60 Random Glucose 89 Calcium 9.6 Total Bilirubin 0.5 AST 26 ALT 34 Alkaline Phosphatase 103 Total Protein 7.3 Albumin 4.2 Urine Color Yellow Urine Appearance Cloudy Urine pH 6.5 Ur Specific [place] 1.025 Urine Protein Negative Urine Glucose (UA) Negative Urine Ketones Trace Urine Blood Negative Urine Nitrite Negative Ur Leukocyte Esterase Negative Urine Opiates Screen Not Detected Ur Buprenorphine Scrn Not Detected Ur Oxycodone Screen Not Detected Urine Methadone Screen Not Detected Urine Fentanyl Screen Not Detected Ur Barbiturates Screen Not Detected Ur Phencyclidine Scrn Not Detected Ur Amphetamines Screen POSITIVE H U Benzodiazepines Scrn Not Detected Urine Cocaine Screen Not Detected U Marijuana (THC) Screen POSITIVE H Ethyl Alcohol < 10 Influenza Type A (PCR) POSITIVE A Influenza Type B (PCR) NEGATIVE RSV RNA Qual (PCR) NEGATIVE SARS-CoV-2 RNA (RT-PCR) NEGATIVE DS: Summary Time Spent with Patient Time attestation: Total time managing care of this patient today ____ minutes. Discharge Plan Discharge Anticipated Discharge Date/Time: 09/16/24 12:00 Patient Disposition: Xfer Other Discharge Diagnosis: PTSD Bipolar Disorder, Depressed ADHD Referrals: Therapy- [facility] [Other] - 09/18/24 1:00 pm ([facility] ) Medication Management- [facility] [Other] - 09/18/24 1:30 pm (Appointment is with Thuy Lane NP ) Physician,Unknown J [Primary Care Provider] - 1 Week Discharge Medications: New bupropion HCl 150 mg Tablet Extended Release 24 Hr 150 mg PO DAILY Qty: 30 0RF oseltamivir 30 mg Capsule 30 mg PO Q12H Qty: 8 0RF citalopram [Celexa] 20 mg tablet 20 mg PO DAILY Qty: 30 0RF Continued lisdexamfetamine [Vyvanse] 40 mg Capsule 40 mg PO QAM Qty: 30 0RF Discontinued citalopram [Celexa] 20 mg Tablet 20 mg PO DAILY Discharge Orders: Discharge Order (Routine); Ordered 09/16/24 Ordered By: La Nena Brewer Diet: Advance to usual diet Activity on Discharge: As tolerated Stand Alone Forms: Patient Portal Discharge page Print Language: [place]ian Care Plan Goals: Mood and Behavioral Stabilization Health Concerns: Mood and Behavioral Stabilization Plan of Treatment: Take medications as directed Attend scheduled appointments Call/Return if needed Assessment: No SI,HI,AH,VH No sx of acute nilo or psychosis
[2024-09-16 08:00] VITALS: BP 138/84; PULSE 79; RESP 16; TEMP 37.3; O2SAT 97
[2024-09-16] MEDS: DEXTROAMPHETAMI PO (08:53)
[2024-09-16] MEDS: Oseltamivir Phosphate 30 MG CAPSULE PO (08:53)
[2024-09-16] MEDS: AMPHETAMINE PO (08:53)
[2024-09-16] MEDS: buPROPion HCl XL 150 MG TAB.ER.24H PO (08:54)
[2024-09-16] MEDS: Escitalopram Oxalate 10 MG TABLET PO (08:54)
== END 2024-09-16 11:52 | disposition other institution (70) | DRG 753 ==
LOC: HO.ED 09-12 01:40 → HO.PM5 09-12 12:10
PROVIDERS: Admitting Provider Psychiatry & Neurology Psychiatry; Emergency Provider Emergency Medicine; Visit Provider Clinical Nurse Specialist Psychiatric/Mental Health, Adult
DX: F31.30 Bipolar disorder, current episode depressed, mild or moderate severity, unspecified (principal); R45.851 Suicidal ideations; F43.10 Post-traumatic stress disorder, unspecified; F90.9 Attention-deficit hyperactivity disorder, unspecified type; F84.0 Autistic disorder; Z63.4 Disappearance and death of family member; Z23 Encounter for immunization; Z79.899 Other long term (current) drug therapy
CPT/HCPCS: 0241U; 36415; 80053; 80307; 81003; 85025; 90656; 99285; S9485

== ENCOUNTER → 2024-09-12 11:52 | Outpatient (BNV) | payer OTHER, SELFPAY | PROVIDERS: Admitting Provider Psychiatry & Neurology Psychiatry; Emergency Provider Emergency Medicine; Visit Provider Psychiatry & Neurology Psychiatry | DX: F31.4 Bipolar disorder, current episode depressed, severe, without psychotic features (principal); F43.11 Post-traumatic stress disorder, acute; F90.9 Attention-deficit hyperactivity disorder, unspecified type | CPT/HCPCS: 90792; 99231; 99232 ==